=== PATIENT | male | born 1995 | race Caucasian/White ===

== ENCOUNTER 2019-05-14 08:23 | Emergency (ER) | payer OTHER ==
[2019-05-14 08:32] VITALS: BP 170/101; PULSE 102; RESP 17; TEMP 98.4
[2019-05-14] MEDS ORDERED: LIDOCAINE 1% INJ 10MG/ML (20 ML MDV) SQ ONE (08:53)
[2019-05-14] MEDS ORDERED: DIPH,PERTUS(ACELL)TETVAC-LF 0.5 ML VIAL IM ONE (08:53)
[2019-05-14] MEDS ORDERED: ACETAMINOPHEN TAB 500 MG TAB PO STA (08:53)
--- NOTE | 2019-05-14 09:01 | ED ---
General Adult HPI - General Chief complaint: Fall Stated complaint: Fell off ladder head laceration-[facility] Time Seen by Provider: 05/14/19 08:42 Source: patient, RN notes reviewed Mode of arrival: ambulatory Limitations: no limitations - History of Present Illness Initial comments: 24-year-old male presents to the emergency department for chief complaint of fall. Patient states he was standing with his feet about 2-3 feet on a ladder states that his heel got stuck in the wrong so he fell backwards and hit his head. No loss of consciousness the patient did feel dazed. Complains of mild neck pain as well. Denies any back pain. Does admit that he scraped his right elbow but that he has no difficulty moving the elbow or pain within the elbow. Patient does state he has a laceration to the back of the head. Patient has no other complaints at this time including shortness of breath, chest pain, abdominal pain, nausea or vomiting, headache, or visual changes. - Related Data Home Medications Medication Instructions Recorded Confirmed No Known Home Medications 05/14/19 05/14/19 Allergies Allergy/AdvReac Type Severity Reaction Status Date / Time No Known Allergies Allergy Verified 05/14/19 08:39 Review of Systems ROS Statement: Those systems with pertinent positive or pertinent negative responses have been documented in the HPI. ROS Other: All systems not noted in ROS Statement are negative. Past Medical History Past Medical History: No Reported History History of Any Multi-Drug Resistant Organisms: None Reported Past Surgical History: No Surgical Hx Reported Past Psychological History: No Psychological Hx Reported Smoking Status: Never smoker Past Alcohol Use History: None Reported Past Drug Use History: None Reported General Exam Limitations: no limitations General appearance: alert, in no apparent distress Head exam: Present: normocephalic, normal inspection. Absent: atraumatic (patient has two 2 cm lacerations to posterior parietal scalp) Eye exam: Present: normal appearance, PERRL, EOMI. Absent: scleral icterus, conjunctival injection, periorbital swelling ENT exam: Present: normal exam, normal oropharynx, mucous membranes moist, TM's normal bilaterally (Negative hemotympanum), normal external ear exam Neck exam: Present: tenderness (No significant cervical spine tenderness), other (Patient currently in c-collar). Absent: meningismus, lymphadenopathy Respiratory exam: Present: normal lung sounds bilaterally. Absent: respiratory distress, wheezes, rales, rhonchi, stridor Cardiovascular Exam: Present: regular rate, normal rhythm, normal heart sounds. Absent: systolic murmur, diastolic murmur, rubs, gallop, clicks GI/Abdominal exam: Present: soft, normal bowel sounds. Absent: distended, tenderness, guarding, rebound, rigid Extremities exam: Present: other (Full range of motion of all extremities. Patient does have a small abrasion noted of the right elbow however no edema.) Back exam: Absent: CVA tenderness (R), CVA tenderness (L), vertebral tenderness (No thoracic or lumbar spine tenderness.) Neurological exam: Present: alert, oriented X3, CN II-XII intact, normal gait, other (GCS 15) Psychiatric exam: Present: normal affect, normal mood Course Vital Signs 05/14/19 08:26 Temperature 98.4 F Pulse Rate 102 H Respiratory 17 Rate Blood Pressure 170/101 O2 Sat by Pulse 95 Oximetry Procedures - Laceration Laceration #1 Consent Obtained: verbal consent Indication: laceration Site: other (head) Size (cm): 4 Description: linear Depth: simple, single layer Anesthetic Used: lidocaine 1% Anesthesia Technique: local infiltration Amount (mls): 7 Pre-repair: wound explored, irrigated extensively Type of Sutures: other (jamarcus) Number of Sutures: 5 Technique: simple, interrupted Patient Tolerated Procedure: well, no complications Medical Decision Making - Medical Decision Making Vitals are stable. Exam pertinent for 2 lacerations to the posterior parietal scalp. CT brain and C-spine were obtained which showed no acute fracture or dislocation. C-collar was removed after the spine was cleared. CT brain shows no acute intracranial hemorrhage or midline shift. There is a moderate-sized ac sioux scalp hematoma noted. This was cleaned thoroughly with saline pressure irrigation. 5 jamarcus were placed over 2 separate lacerations. Patient denying any nausea vomiting, severe headache, or any other concussion symptoms. However discussed taking today off and monitored tearing how he feels. If he develops new symptoms by tomorrow he can return however otherwise he needs to follow up with primary care before returning to work. Discussed return precautions. Disposition Clinical Impression: Head injury, Laceration Disposition: HOME SELF-CARE Condition: Good Instructions (If sedation given, give patient instructions): Laceration (ED), Care For Your Stitches (ED) Additional Instructions: Take Motrin and Tylenol for pain. Monitor for signs of infection and follow up with primary care in 1-2 days. Monitor for signs of concussion which were discussed with you. Return in 7-10 days for staple removal. Return to the emergency department if you have any worsening symptoms. Is patient prescribed a controlled substance at d/c from ED?: No Referrals: Mitchell Resendiz MD [Primary Care Provider] - 1-2 days Time of Disposition: 10:31
--- NOTE | 2019-05-14 09:28 | CT ---
EXAMINATION TYPE: CT brain cspine wo con DATE OF EXAM: 05/14/2019 COMPARISON: Trauma CT March 08, 2012 HISTORY: Fall from ladder, open wound to back of head with headache and neck pain. CT DLP: 1743.8 mGycm. Automated Exposure Control for Dose Reduction was Utilized. TECHNIQUE: CT scan of the head and cervical spine are performed without contrast. FINDINGS: There is no acute intracranial hemorrhage, mass effect, or midline shift identified. The ventricles and sulci are within normal limits in size. The globes are intact bilaterally. Some patc hy opacification left ethmoid sinuses axial image 14 is noted. Mild to moderate mucosal thickening in volving the inferior aspect bilateral maxillary sinuses is present. There is moderate-sized acute sca lp hematoma occipital region just right of midline centered axial image 46. The calvarium is intact Cervical spine is visualized in its entirety from C1 through upper thoracic levels and demonstrates s atisfactory alignment without evidence of acute fracture or dislocation. Prevertebral soft tissue ap pears within normal limits. The C1-C2 articulation is within normal limits on the coronal images. Ve rtebral body heights and disc space heights are maintained. Spinal canal is grossly preserved. Thyroi d gland is within normal limits. Axial images are unremarkable. Lung apices are clear. IMPRESSION: 1. There is no acute fracture or dislocation evident in the cervical spine. 2. No acute intracranial hemorrhage or midline shift is seen. Moderate size acute scalp hematoma occi pital region just right of midline.
[2019-05-14] MEDS ORDERED: IBUPROFEN 600 MG TAB PO STA (10:29)
== END 2019-05-14 10:59 | disposition home or self-care (01) ==
LOC: EC 08:23
DX: S01.01XA Laceration without foreign body of scalp, initial encounter (principal); M54.2 Cervicalgia; Z23 Encounter for immunization; W11.XXXA Fall on and from ladder, initial encounter; Y93.89 Activity, other specified; Y92.69 Other specified industrial and construction area as the place of occurrence of the external cause; Y99.0 Civilian activity done for income or pay
CPT/HCPCS: 72125; 70450; 90715; 12002; 99283; 90471; J2001